=== PATIENT | female | born 1950 | race Caucasian/White ===

== ENCOUNTER 2016-12-07 18:58 | Emergency (ER) | payer MEDICARE, BC ==
[~2016-12-07] VITALS: Ht 162.6 cm; Wt 72.0 kg
[2016-12-07 19:00] VITALS: BP 186/97; PULSE 97; RESP 16; TEMP 98.3; O2SAT 95
--- NOTE | 2016-12-07 19:31 | PD ---
HPI Chief Complaint: Injury Time Seen by Provider: 19:30 Travel History International Travel<30 days: No Contact w/Intl Traveler<30days: No Traveled to known affect area: No History of Present Illness HPI 66-year-old female came to the emergency room after tripping on her dog's leash and the beach. She fell with outstretched left hand. Incidentally there was pain of her left hand and wrist. She had gone to the urgent care where x-rays were done. The Edson wrapped it and put her in an arm sling and sent her to the emergency room with the CD of the x-ray and told her that it looks broken. Patient says she did not get anything for pain there. And she is in significant pain. She did not hit her head. She looked anxious and in discomfort. Blood pressure was elevated. [facility] Past Medical History Narrative Medical List of her past medical, surgical, social and family history is reviewed from the nursing note. Social History Tobacco Use: No Allergies-Medications (Allergen,Severity, Reaction): Coded Allergies: Clindamycin (Verified Allergy, Unknown, 12/07/16) Iodine (Verified Allergy, Unknown, 12/07/16) Penicillin (Verified Allergy, Unknown, 12/07/16) Pyridium (Verified Allergy, Unknown, 12/07/16) Seafood (Verified Allergy, Unknown, 12/07/16) Tetanus Toxoid (Verified Allergy, Unknown, 12/07/16) Tetracycline (Verified Allergy, Unknown, 12/07/16) Comments List of her allergies reviewed from the nursing note. Reported Meds & Prescriptions Reported Meds & Active Scripts Active Ibuprofen 600 Mg Tab 600 Mg PO Q6H PRN Reported Vitamin D-3 (Cholecalciferol) 2,000 Unit Tab Calcium (Calcium Carbonate) 600 Mg Tab Vitamin B Complex Tablet (Vit B Comp/C/FA/Iron/Vit E) 1 Each Tablet Temazepam 30 Mg Cap 30 Mg PO HS PRN Plaquenil (Hydroxychloroquine Sulfate) 200 Mg Tab 400 Mg PO DAILY Take with food Estradiol 2 Mg Tab 10 Mg PO DAILY Synthroid (Levothyroxine Sodium) 150 Mcg Tab 150 Mcg PO MON, WED, MAVERICK Synthroid (Levothyroxine Sodium) 137 Mcg Tab 137 Mcg PO TU,THUR, SAT,SUN Narrative Medication List of home medications reviewed from the nursing note. Review of Systems Except as stated in HPI: all other systems reviewed are Neg Physical Exam Narrative GENERAL: Awake, alert, anxious, moderate distress SKIN: Focused skin assessment warm/dry. HEAD: Atraumatic. Normocephalic. EYES: Pupils equal and round. No scleral icterus. No injection or drainage. ENT: No nasal bleeding or discharge. Mucous membranes pink and moist. NECK: Trachea midline. No JVD. CARDIOVASCULAR: Regular rate and rhythm. No murmur appreciated. RESPIRATORY: No accessory muscle use. Clear to auscultation. Breath sounds equal bilaterally. GASTROINTESTINAL: Abdomen soft, non-tender, nondistended. Hepatic and splenic margins not palpable. MUSCULOSKELETAL: No obvious deformities. No clubbing. No cyanosis. No edema. Left hand distal cap refill and sensations intact in the fingers NEUROLOGICAL: Awake and alert. No obvious cranial nerve deficits. Motor grossly within normal limits. Normal speech. PSYCHIATRIC: Appropriate mood and affect; insight and judgment normal. Data Data Last Documented VS Vital Signs Date Time Temp Pulse Resp B/P Pulse Ox O2 Delivery O2 Flow Rate FiO2 12/07/16 19:00 98.3 97 16 186/[address] Hand W/O Contrast (12/07/16 ) Ct Wrist W/O Contrast (12/07/16 ) Acetamin-Hydrocod 325-5 Mg ([place] 5-325 (12/07/16 19:45) Ibuprofen (Motrin) (12/07/16 19:45) Ice/Cold Pack (12/07/16 19:45) Splinting (12/07/16 ) Fiberglass Splint Forearm Adul (12/07/16 ) Fiberglass Thumb Spica Adult (12/07/16 ) MDM Medical Decision Making Medical Screen Exam Complete: Yes Emergency Medical Condition: Yes Medical Record Reviewed: Yes Differential Diagnosis Wrist fracture, wrist dislocation, wrist strain Narrative Course 8:25 PM all urgent care had faxed the x-ray report and as per the report there is a questionable scaphoid fracture and a questionable distal radius fracture and a questionable subluxation of the styloid process of ulna. Given all these questionable injuries and patient's discomfort I discussed with her and decided to order a CT scan of her hand and wrist. Awaiting for the CT to be done and resulted. Patient was medicated for pain. 9:[address] scan does not show any acute fracture. Patient will be put on a splint and discharged home. She told me that she is not from here but from [place]. She would like to follow-up with orthopedics back home. Procedures EKG Prior to Arrival: No Diagnosis Primary Impression: Wrist sprain Qualified Code: S63.502A - Wrist sprain, left, initial encounter Referrals: Luis Gaitan MD 1 week Additional Instructions: Please return to the ER if the condition worsens or any other new concerns. Keep the splint clean and dry until seen by the orthopedics or hand surgeon. The hand surgeon who is on for us his name and number been given to you on this discharge paper. If you wish to follow up with him please call his office in the morning to get an appointment. Apply ice pack on the affected area, keep the arm elevated above the heart level and take Motrin/Advil/ibuprofen for pain and also to keep the swelling down. Med/Other Pt SpecificInfo: Prescription(s) given Scripts Ibuprofen 600 Mg Hoc359 Mg PO Q6H PRN (Pain/Inflammation) #40 TAB Ref 0 Prov:Logan Jane MD 12/07/16 Disposition: 01 DISCHARGE HOME Condition: Stable Logan Jane MD Dec 07, 2016 19:31
[2016-12-07] MEDS ORDERED: IBUPROFEN 600 MG TAB PO ONE (19:45)
[2016-12-07] MEDS ORDERED: ACETAMINOPHEN/HYDROcodone 325 MG/5 MG TAB PO ONE (19:45)
[2016-12-07] MEDS ORDERED: PLAQ200T PO (19:54)
[2016-12-07] MEDS ORDERED: CHOL1TAB42 (19:54)
[2016-12-07] MEDS ORDERED: CALC600T25 (19:54)
[2016-12-07] MEDS ORDERED: TEMA30CA PO (19:54)
[2016-12-07] MEDS ORDERED: TH BTAB (19:54)
[2016-12-07] MEDS ORDERED: LEVO.15 PO (19:54)
[2016-12-07] MEDS ORDERED: LEVO-86 PO (19:54)
[2016-12-07] MEDS ORDERED: ESTR2TAB PO (19:54)
--- NOTE | 2016-12-07 21:27 | RADRPT ---
EXAM DATE/TIME: 12/07/2016 20:30 [facility] COMPARISON: No previous studies available for comparison. INDICATIONS : Fall onto left hand today, left wrist pain. RADIATION DOSE: 8.19 CTDIvol (mGy) ; Combined studies MEDICAL HISTORY : Lupus. SURGICAL HISTORY : Hysterectomy. ENCOUNTER: Initial ACUITY: 1 day PAIN SCALE: 7/10 LOCATION: Left wrist TECHNIQUE: Volumetric scanning of the hand was performed. Using automated exposure control and adjustment of th e mA and/or kV according to patient size, radiation dose was kept as low as reasonably achievable to obtain optimal diagnostic quality images. DICOM format image data is available electronically for re view and comparison. FINDINGS: BONES: No evidence of fracture. Alignment is within normal limits. JOINTS: No evidence of joint narrowing or effusion. SOFT TISSUES: Muscles, tendons, and neurovascular structures are grossly unremarkable. No evidence of mass, organiz ed fluid collection, or foreign body. CONCLUSION: There is no evidence for fracture. If the patient remains symptomatic MRI may be of benefit. Ashwin Escobar MD FACR on December 07, 2016 at 21:23 Board Certified Radiologist. This report was verified electronically.
--- NOTE | 2016-12-07 21:28 | RADRPT ---
EXAM DATE/TIME: 12/07/2016 20:30 [facility] COMPARISON: No previous studies available for comparison. INDICATIONS : Fall onto left hand today, left wrist pain. RADIATION DOSE: 8.19 CTDIvol (mGy) MEDICAL HISTORY : Lupus. SURGICAL HISTORY : Hysterectomy. ENCOUNTER: Initial ACUITY: 1 day PAIN SCALE: 7/10 LOCATION: Left wrist TECHNIQUE: Volumetric scanning of the wrist was performed. Using automated exposure control and adjustment of t he mA and/or kV according to patient size, radiation dose was kept as low as reasonably achievable to obtain optimal diagnostic quality images. DICOM format image data is available electronically for review and comparison. FINDINGS: BONES: No evidence of fracture. Alignment is within normal limits. JOINTS: No evidence of joint narrowing or effusion. No focal bone erosion. Intrinsic ligaments and triangul ar fibrocartilage cannot be reliably evaluated on CT without intra-articular contrast SOFT TISSUES: Muscles, tendons, and neurovascular structures are grossly unremarkable. No evidence of mass, organi zed fluid collection or foreign body. CONCLUSION: Negative for fracture. Patient remains symptomatic MRI may be of benefit. Ashwin Escobar MD FACR on December 07, 2016 at 21:26 Board Certified Radiologist. This report was verified electronically.
[2016-12-07] MEDS ORDERED: IBUP-232 PO (21:34)
== END 2016-12-07 22:05 | disposition home or self-care (01) ==
LOC: NEPE 18:58
DX: S63.502A Unspecified sprain of left wrist, initial encounter (principal); Z79.899 Other long term (current) drug therapy; Z88.0 Allergy status to penicillin; Z88.8 Allergy status to other drugs, medicaments and biological substances; W01.0XXA Fall on same level from slipping, tripping and stumbling without subsequent striking against object, initial encounter
CPT/HCPCS: 29125; 73200; 99285; L3808